=== PATIENT | female | born 1990 | race Hispanic/Latino ===

== ENCOUNTER 2020-11-16 07:59 | Outpatient (RCR) | payer OTHER, SELFPAY ==
[2020-11-16 09:32] LABS: Hematocrit 30.5 % (37.0-47.0); Hemoglobin 10.4 g/dL (12.0-15.0); Mean Corpuscular HGB Conc 34.1 g/dl (32-36); Mean Corpuscular Hemoglobin 31.2 pg (26-34); Mean Corpuscular Volume 91.6 fl (80-100); Mean Platelet Volume 9.2 fl (7.4-10.4); Platelet Count Result 183 k/mm3 (150-375); Red Blood Count 3.33 M/mm3 (4.2-5.4); Red Cell Distribution Width 13.2 % (11.5-14.5); White Blood Count 5.9 K/mm3 (4.5-10.0)
[2020-11-16 14:12] LABS: Glucose 1 Hour PP 50gm Dose 145 mg/dL
[2020-11-16 14:52] LABS: HIV 1/2 Ab P24 Ag Result Negative (Negative)
[2020-11-17] MEDS: RHO(D) IMMUNE GLOBULIN 300 MCG SYRINGE IM (11:59)
== END 2021-02-14 23:59 | disposition home or self-care (01) ==
LOC: ANHLAB 07:59
PROVIDERS: PCP Internal Medicine Gastroenterology; Visit Provider Obstetrics & Gynecology
DX: Z29.13 Encounter for prophylactic Rho(D) immune globulin (principal); Z11.4 Encounter for screening for human immunodeficiency virus [HIV]; O36.0990 Maternal care for other rhesus isoimmunization, unspecified trimester, not applicable or unspecified; Z3A.00 Weeks of gestation of pregnancy not specified
CPT/HCPCS: 36415; 82947; 85027; 85461; 86703; 90384; 96372; G0432; J2790

== ENCOUNTER 2021-01-31 12:07 | Outpatient (CLI) | payer OTHER, SELFPAY ==
[2021-01-31 13:10] LABS: Hematocrit 35.7 % (37.0-47.0); Hemoglobin 12.1 g/dL (12.0-15.0); Mean Corpuscular HGB Conc 33.9 g/dl (32-36); Mean Corpuscular Hemoglobin 30.9 pg (26-34); Mean Corpuscular Volume 91.3 fl (80-100); Mean Platelet Volume 10.1 fl (7.4-10.4); Platelet Count Result 168 k/mm3 (150-375); Red Blood Count 3.91 M/mm3 (4.2-5.4); Red Cell Distribution Width 13.9 % (11.5-14.5); White Blood Count 6.1 K/mm3 (4.5-10.0)
[2021-02-01 14:14] LABS: Rapid Plasma Reagin Non-Reactive (NonReactive)
== END 2021-01-31 12:08 | disposition home or self-care (01) ==
LOC: ANHLAB 12:10
PROVIDERS: PCP Internal Medicine Gastroenterology; Visit Provider Obstetrics & Gynecology
DX: Z34.93 Encounter for supervision of normal pregnancy, unspecified, third trimester (principal); Z3A.00 Weeks of gestation of pregnancy not specified
CPT/HCPCS: 36415; 85027; 86592; 86850; 86900; 86901

== ENCOUNTER 2021-02-01 09:49 | Inpatient (IN) | payer OTHER, SELFPAY ==
--- NOTE | 2021-01-23 14:46 | PC.NURSE ---
VERIFIED WITH OR SCHEDULE AND PATIENT C/S WITH TUBAL ON 02/01/21 AT 1200 PATIENT GIVEN REQUISITION FOR LAB DRAW ON 01/31/21
[2021-02-01] VITALS (48 sets, daily range): BP systolic 87–110; BP diastolic 60–75; PULSE 50–83; RESP 12–16; TEMP 36.3–36.8; O2SAT 99–100; BMI 32.4
[2021-02-01] MEDS: LACTATED RINGERS 1,000 ML 125 ML IV CONT ×2 (10:24→11:32)
--- NOTE | 2021-02-01 10:30 | LDADM ---
This patient, Lynn Ribeiro, was admitted to Labor/Delivery/Recovery 120 on 02/01/21 at 09:49. Plans for labor, pain management and were discussed with patient. Patient/family oriented to hospital policies and general routines including ID bracelet, bed and alarms, visiting hours, pain management, procedures, bathroom and other care routines, personal items, smoking policy, room service/diet and guest tray routines, security routines, and visiting hours. Patient/Family are encouraged to report perceived risks to care and to ask questions if they do not understand what they are told or what they should do. See OBIX for further documentation.
--- NOTE | 2021-02-01 11:53 | PM.IMHP ---
H&P: HPI History of Present Illness Date/Time: 02/01/21 11:53 30-year-old 4 para 3003 female presents for repeat delivery. Last was delivered via section though the 1st 2 were vaginal deliveries. Also this is in breech presentation. Also desires tubal ligation which we have discussed the permanence failure rate increased risk of ectopic and regret and she does desire to proceed. Chief Complaint: Review of Systems Review of Systems: All systems reviewed & are unremarkable except as noted in HPI and below PMFSH Family History Family History Father Hypertension Mother Diabetes mellitus Grandparent Cancer Cerebrovascular accident Social History Social History Smoking status: Never smoker Substance use: never Spiritual care concerns: No Meds Home Medications and Allergies Home Medications Medication Instructions Recorded Confirmed Type prenat.vits,yifan,zhh-shof-jvgtj 1 tablet PO DAILY 01/23/21 01/23/21 History [ #2] Allergies Allergy/AdvReac Type Severity Reaction Status Date / Time aspirin AdvReac Vomiting Verified 02/01/21 10:55 Vital Signs Vital Signs - 24 hr 02/01/21 10:11 02/01/21 10:30 02/01/21 10:45 Temperature Pulse Rate 82 76 75 Blood Pressure 97/66 L 100/64 105/73 02/01/21 11:01 02/01/21 11:10 02/01/21 11:15 Temperature 36.8 C Pulse Rate 83 80 Blood Pressure 106/72 106/75 Exam Const: General: cooperative Resp: Effort & Inspection: normal respiratory effort Auscultation: clear to auscultation bilaterally Cardio: Rate: regular rate Rhythm: regular rhythm GI: Inspection: normal to inspection Auscultation: normal bowel sounds : External Female Exam: normal external appearance Speculum Exam - Vagina: normal appearance of the vagina Bimanual exam- vagina & uterus: enlarged (40cm heart tones 140 breech presentation) Assessment and Plan Assessment and plan (1) 39 weeks gestation of : Code(s): Z3A.39 - 39 weeks gestation of Status: Acute (2) Previous delivery affecting : Code(s): O34.219 - Maternal care for unspecified type scar from previous delivery Status: Acute (3) Breech presentation: Code(s): O32.1XX0 - Maternal care for breech presentation, not applicable or unspecified Status: Acute (4) Encounter for female sterilization procedure: Code(s): Z30.2 - Encounter for sterilization Status: Acute Additional Plan Proceed with low-transverse section with bilateral tubal ligation
--- NOTE | 2021-02-01 11:56 | WPDHPUPDATE1 ---
History and Physical Update Update Date/Time: 02/01/21 11:56 History and Physical has been reviewed, including an updated exam of the patient. There are NO changes in the patient's condition. Risks, benefits, and alternatives have been discussed and questions answered. Patient agrees to proceed with procedure.
--- NOTE | 2021-02-01 12:54 | P.PCNOB_ITS ---
OB - Delivery Note Procedure Procedure: Procedures Operation Date: 02/01/21 12:00 <No data on this case meets the specified criteria> Route of delivery: (With bilateral tubal ligation) Specimen: Yes Quantitative Blood Loss (ml): 1,000 Anesthesia type: Spinal Disposition: floor Narrative: Patient prepped and draped usual manner this procedure Pfannenstiel incision was made. This carried down to the fascia which was extended bilaterally the length of the skin incision. Peritoneum was readily entered and bladder flap was developed. Lower size lower uterine segment was incised the length of the uterus. Breech was then delivered without difficulty footling breech without difficulty. Cord was clamped and cut placenta was removed manually and membranes and clots removed as well. Uterus was then closed using 0 Monocryl in running interlocking manner with good approximation hemostasis noted there was a small amount of oozing from the right edge which was right rendered hemostatic using [id number] suture. Bilateral the Jose clamps were then used to grasp the tube and the distal segments of both tubes were readily removed. Uterus was turned the abdomen uterine incision was hemostatic and both tubal stumps were also hemostatic and intact. All subfascial tissue was noted be hemostatic and the fascia was approximated from the left angle to midline in the right angle to midline in running manner with good approximation noted. Subcutaneous tissue approximated and janae used to approximate skin edges. Patient are procedure was then to recovery room in stable condition. [place] Weeks of gestation at delivery: 39 Infant gender: Male Weight (pounds): 8 Weight (ounces): 15 presentation: lolis breech score one minute: 9 score five minutes: 9
[2021-02-01] MEDS: OXYTOCIN 30 UNITS/NS 500 ML 30 UNITS/500 ML BAG 125 UNITS IV CONT (13:52)
[2021-02-01] MEDS: ONDANSETRON INJ 4 MG/2 ML VIAL IV PUSH (17:27)
[2021-02-01] MEDS: KETOROLAC 30 MG/ML VIAL (*BKC) IV PUSH (17:27)
[2021-02-01] MEDS: DEXTROSE 5%/0.45% SOD CHL 1,000 ML 125 ML IV CONT (18:30)
[2021-02-01] MEDS: HYDROcodone/acetaminophen (*CRX) 5-325 MG TABLET 1 TAB PO (23:14)
[2021-02-02] VITALS: BP 97/67; PULSE 66; RESP 16; TEMP 36.4; O2SAT 99
[2021-02-02] MEDS: IBUPROFEN 600 MG TABLET PO ×4 (03:50→23:23)
[2021-02-02] MEDS: HYDROcodone/acetaminophen (*CRX) 5-325 MG TABLET 1 TAB PO ×5 (03:50→23:23)
[2021-02-02 04:00] VITALS: BP 98/57; PULSE 70; RESP 16; TEMP 36.4; O2SAT 99
[2021-02-02 05:33] LABS: Basophils Percent Auto 0.2 % (0.2-1.2); Eosinophils Percent Auto 0.3 % (0-4.4); Hematocrit 28.7 % (37.0-47.0); Hemoglobin 9.7 g/dL (12.0-15.0); Immature Granulocyte Absolute 0.02 K/mm3 (0.00-0.031); Immature Granulocyte Percent A 0.2 % (0-0.5); Lymphocytes Absolute Auto 1.42 K/mm3 (0.9-3.2); Mean Corpuscular HGB Conc 33.8 g/dl (32-36); Mean Corpuscular Hemoglobin 30.9 pg (26-34); Mean Corpuscular Volume 91.4 fl (80-100); Mean Platelet Volume 10.4 fl (7.4-10.4); Monocytes Absolute Auto 0.7 K/mm3 (0.1-0.6); Monocytes Percent Auto 7.5 % (2.6-8.5); Neutrophils Absolute Auto 6.7 K/mm3 (1.3-6.7); Neutrophils Percent Auto 75.8 % (45.5-73.1); Platelet Count Result 130 k/mm3 (150-375); Red Blood Count 3.14 M/mm3 (4.2-5.4); Red Cell Distribution Width 13.5 % (11.5-14.5); White Blood Count 8.9 K/mm3 (4.5-10.0)
--- NOTE | 2021-02-02 07:31 | WPDANLDPN2 ---
Anes-Prog Note L&D Date/Time: 02/02/21 07:31 Comfortable throughout: section Neuraxial method: spinal Epidural/Spinal procedure site: clean & non-tender Neuro status: Neuro function grossly intact. Cardiovascular status: normal Respiratory status: normal Airway patency: baseline Mental status: baseline Post-Op hydration status: normal Vital Signs: Last Vital Signs Temp 36.4 C 02/02/21 04:00 Pulse 70 02/02/21 04:00 Resp 16 02/02/21 04:00 BP 98/57 L 02/02/21 04:00 Pulse Ox 99 02/02/21 04:00 Pain score (VAS): 2 I/O: Intake & Output 02/01/21 02/01/21 02/02/21 15:59 23:59 07:59 Intake Total 2000 1100 1600 Output Total 783 848 8111 Balance 1850 500 -200 Post-procedural complaints: none Patient feedback: Patient satisfied with anesthetic care.
--- NOTE | 2021-02-02 07:31 | WPDANLDNPN2 ---
Anes-Prog Note L&D-Neuraxial Date/Time: 02/02/21 07:31 Neuraxial medications: intrathecal PF morphine Opiod-related complaints: none Patient feedback: Patient satisfied with post-operative pain management.
[2021-02-02 08:15] VITALS: BP 92/59; PULSE 73; RESP 20; TEMP 36.5; O2SAT 100
[2021-02-02] MEDS: DOCUSATE SODIUM 100 MG CAPSULE PO ×2 (08:29→16:37)
[2021-02-02] MEDS: POLYSACCHARIDE IRON COMPLEX 150 MG CAPSULE PO ×2 (08:29→16:37)
[2021-02-02] MEDS: MULTIVIT/MIN/PREN/FOL AC/IRON TABLET 1 TAB PO (08:29)
--- NOTE | 2021-02-02 09:03 | PM.OBPNVD ---
OB - PN: Subj Subjective Date/time seen: 02/02/21 09:03 Pain well controlled/diet and ambulation without difficulty. OB - PN: Obj Data Labs CBC & Chem 7: 02/02/21 03:57 Labs: Laboratory Results - last 24 hr 02/02/21 02/02/21 03:57 03:57 WBC 8.9 RBC 3.14 L Hgb 9.7 L Hct 28.7 L MCV 91.4 MCH 30.9 MCHC 33.8 RDW 13.5 Plt Count 130 L MPV 10.4 Immature Gran % (Auto) 0.2 Neut % (Auto) 75.8 H Lymph % (Auto) 16.0 L [place] % (Auto) 7.5 Eos % (Auto) 0.3 Baso % (Auto) 0.2 Lymph # (Auto) 1.42 [place] # (Auto) 0.7 H Eos # (Auto) 0.0 Baso # (Auto) 0.0 Abs Immat Gran (auto) 0.02 Absolute Neuts (auto) 6.7 Absolute Nucleated RBC 0.0 Nucleated RBC % 0.0 Blood Type O Negative Antibody Screen TNP Screen Negative Baby's Blood Type O pos Baby's VIJAYA Negative Doses of RhIg Required 1 OB - PN A/P Assessment and Plan (1) Postop check: Code(s): Z09 - Encounter for follow-up examination after completed treatment for conditions other than malignant neoplasm Status: Acute Assessment and Plan: Routine /postop care. Time Spent With Patient Time: Total time spent is greater than 50% in coordination of care (as documented) at patient's floor/unit and/or counseling patient: Exam GI: Inspection: normal to inspection Auscultation: normal bowel sounds Other: incision dressing clean
--- NOTE | 2021-02-02 09:04 | PM.OBDSVD ---
DS: Admitting Diagnosis Admitting Diagnosis Admitting Diagnosis: DS: Discharge Diagnosis Discharge Diagnosis (1) Postop check: Code(s): Z09 - Encounter for follow-up examination after completed treatment for conditions other than malignant neoplasm Status: Acute OB - DS: Summary OB Procedures : None OB Procedures Intrapartum: and Tubal ligation OB Procedures: : None Peripartum Data Procedures: Procedures Operation Date: 02/01/21 12:00 Actual Procedures Side Surgeon p Repeat Section With Bilateral Tubal Ligation Jeancarlos Shay MD Time Spent with Patient Time attestation: Total time spent providing and/or coordinating discharge services: DS: Data Data Completed and Pending Pending studies at discharge: Pending at discharge 02/01/21 12:37 Surgical [PTH] Routine Labs on day of discharge: Labs from last 24 hours 02/02/21 02/02/21 03:57 03:57 WBC 8.9 RBC 3.14 L Hgb 9.7 L Hct 28.7 L MCV 91.4 MCH 30.9 MCHC 33.8 RDW 13.5 Plt Count 130 L MPV 10.4 Immature Gran % (Auto) 0.2 Neut % (Auto) 75.8 H Lymph % (Auto) 16.0 L [place] % (Auto) 7.5 Eos % (Auto) 0.3 Baso % (Auto) 0.2 Lymph # (Auto) 1.42 [place] # (Auto) 0.7 H Eos # (Auto) 0.0 Baso # (Auto) 0.0 Abs Immat Gran (auto) 0.02 Absolute Neuts (auto) 6.7 Absolute Nucleated RBC 0.0 Nucleated RBC % 0.0 Blood Type O Negative Antibody Screen TNP Screen Negative Baby's Blood Type O pos Baby's VIJAYA Negative Doses of RhIg Required 1 Discharge Plan Discharge Discharging Clinician: Jeancarlos Shay Anticipated Discharge Date/Time: 02/03/21 12:00 Patient Disposition: Home, Self-Care Activity: as tolerated Diet: as tolerated Wound Care Instructions: incision open to air Discharge Instructions: office thursday for staple removal Patient Instructions: Antibiotic Form Stand Alone Forms: General Discharge Information Follow-up/Referrals: Jeancarlos Shay MD [Physician] - 3 Weeks Discharge Medications: New hydrocodone-acetaminophen 5-325 mg Tablet 1 tablet PO Q3H PRN (Reason: Moderate Pain (4-6)) Qty: 20 RF: 0 ibuprofen 600 mg Tablet 600 mg PO Q6H PRN (Reason: Cramping) Qty: 30 RF: 1 Continued #2 Tablet 1 tablet PO DAILY RF: 0 Date of admission: 02/01/21 09:49 Primary Care Provider: TannaZully Admitting Provider: Jeancarlos Shay Attending physician on admission: Jeancarlos Shay Condition: Stable
[2021-02-02] MEDS: RHO(D) IMMUNE GLOBULIN 300 MCG/2 ML SYRINGE IM (10:16)
[2021-02-02 12:00] VITALS: BP 101/60; PULSE 67; RESP 18; TEMP 36.6; O2SAT 99
[2021-02-02] MEDS: SIMETHICONE 80 MG TAB.CHEW PO ×4 (12:07→23:24)
[2021-02-02 20:00] VITALS: BP 104/60; PULSE 74; RESP 16; TEMP 36.5; O2SAT 98
[2021-02-03] MEDS: TETANUS,DIPHTHERIA,AC PERTUSSIS ADULT (0.5 ML) BOOSTRIX IM (04:46)
[2021-02-03] MEDS: SIMETHICONE 80 MG TAB.CHEW PO (04:47)
[2021-02-03] MEDS: HYDROcodone/acetaminophen (*CRX) 5-325 MG TABLET 1 TAB PO ×2 (04:47→07:37)
[2021-02-03] MEDS: POLYSACCHARIDE IRON COMPLEX 150 MG CAPSULE PO (07:37)
[2021-02-03] MEDS: MULTIVIT/MIN/PREN/FOL AC/IRON TABLET 1 TAB PO (07:37)
[2021-02-03] MEDS: DOCUSATE SODIUM 100 MG CAPSULE PO (07:37)
[2021-02-03] MEDS: IBUPROFEN 600 MG TABLET PO (07:38)
[2021-02-03 08:00] VITALS: BP 113/76; PULSE 74; RESP 16; TEMP 36.3; O2SAT 100
--- NOTE | 2021-02-03 10:50 | PC.NURSE ---
Patient viewed the discharge video Mother & Baby Care, The First Two Weeks . Patient was given the opportunity and encouraged to ask questions. Patient verbalized understanding of information shared and has been given the mother/baby guide for home reference.
[2021-02-04 12:30] VITALS: BP 105/61; PULSE 82; RESP 16; TEMP 36.7; O2SAT 98
--- NOTE | 2021-02-14 09:48 | PM.OBDSVD ---
DS: Admitting Diagnosis Admitting Diagnosis Admitting Diagnosis: OB - DS: Summary OB Procedures : None OB Procedures Intrapartum: Spontaneous Vag Delivery OB Procedures: : None Peripartum Data Procedures: Procedures Operation Date: 02/01/21 12:00 Actual Procedure Side Surgeon p Repeat Section With Bilateral Tubal Ligation Jeancarlos Shay MD Time Spent with Patient Time attestation: Total time spent providing and/or coordinating discharge services: DS: Data Data Completed and Pending Completed studies during hospitalization: Pending at discharge 02/01/21 12:37 Surgical [PTH] Routine Discharge Plan Discharge Discharging Clinician: Jeancarlos Shay Anticipated Discharge Date/Time: 02/03/21 12:00 Patient Disposition: Home, Self-Care Activity: as tolerated Diet: as tolerated Wound Care Instructions: incision open to air Discharge Instructions: office thursday for staple removal Education: Mom and Baby Guide Given to: Mother Follow-Up: Call your delivering provider's office for an appointment to be seen in: 3 weeks Mom and baby should come to the [facility] for the follow-up appointment. Appointment Date/Time: February 04, 2021 at 12:30 pm What to expect at your follow-up visit: Physical Assessment Call [phone] if you are unable to keep your appointment time. BREAST CARE: * Wear a snug supportive bra. * For engorgement discomfort: Bottle Feeding: * May apply ice packs ABDOMINAL INCISION: (if applicable) * Allow incision to air dry * Do NOT use lotions for powders on your incision * When showering, allow soap and water to run over the incision, but do not wash incision EPISIOTOMY/PERINEAL CARE: * Until bleeding stops, use your aleksandr bottle after urinating * Change your pad frequently throughout the day * No tub baths until seen by your physician - You may shower ACTIVITY: * Rest as much as possible. * Do not exercise or lift anything heavier than your baby (such as laundry or other children.) * Avoid stairs or driving as much as possible. * Do not put anything into the vagina. No douching, tampons, or sexual activity until seen by physician. NOTIFY PHYSICIAN IF YOU HAVE ANY QUESTIONS OR IF ANY OF THE FOLLOWING SYMPTOMS OCCUR: * If your incision becomes red, swollen, or more painful than what you have experienced in the hospital. * If your vaginal bleeding becomes foul smelling. * If your vaginal bleeding becomes more heavy than a period or if your bleeding changes from pink to bright red. However, you may pass an occasional walnut-sized clot once or twice for the first week . * If you experience a sharp, shooting pain in you calves. * If you discover a hard, reddened area on your breast or if you experience flu-like symptoms. DIET: * Eat regular, well-balanced meals. * Drink plenty of fluids daily. If , drink to thirst. Patient Instructions: Antibiotic Form Stand Alone Forms: General Discharge Information Follow-up/Referrals: Jeancarlos Shay MD [Physician] - 3 Weeks Discharge Medications: New hydrocodone-acetaminophen 5-325 mg Tablet 1 tablet PO Q3H PRN (Reason: Moderate Pain (4-6)) Qty: 20 RF: 0 ibuprofen 600 mg Tablet 600 mg PO Q6H PRN (Reason: Cramping) Qty: 30 RF: 1 Continued prenat.vits,yifan,[id number]-rdgps Tablet 1 tablet PO DAILY RF: 0 Date of admission: 02/01/21 09:49 Primary Care Provider: [place] Admitting Provider: Jeancarlos Shay Attending physician on admission: Jeancarlos Shay Condition: Stable
== END 2021-02-03 11:48 | disposition home or self-care (01) | DRG 540 ==
LOC: ANHLDR 09:52 → ANHOB2 15:35
PROVIDERS: Admitting Provider Obstetrics & Gynecology; PCP Internal Medicine Gastroenterology; Visit Provider Obstetrics & Gynecology
PROC: 10D00Z1 Extraction of Products of Conception, Low, Open Approach (ICD-10-PCS; CPT 59514; principal; 2021-02-01 12:00)
DX: O34.211 Maternal care for low transverse scar from previous cesarean delivery (principal); Z37.0 Single live birth; Z3A.39 39 weeks gestation of pregnancy; Z30.2 Encounter for sterilization; O32.8XX0 Maternal care for other malpresentation of fetus, not applicable or unspecified; O99.02 Anemia complicating childbirth; D64.9 Anemia, unspecified
CPT/HCPCS: 36415; 85025; 85461; 88302; 90384; 90715; A9270; J0131; J1885; J2274; J2405; J2590; J2790; J7120

== ENCOUNTER 2021-07-11 10:17 | Outpatient (CLI) | payer OTHER, SELFPAY ==
--- NOTE | ~2021-07-11 | MMUS_ITS ---
EXAMINATION: MM diagnostic manda LT w jose antonio, US breast LT complete HISTORY: Palpable breast lump near the areola TECHNIQUE: Additional 3-D tomosynthesis images of the left breast were performed and synthetic 2-D im ages were generated. CAD analysis was submitted and interpreted. High resolution complete left breast ultrasound was performed. COMPARISON: None BREAST PARENCHYMAL COMPOSITION: The breasts are heterogenously dense, which may obscure small masses. FINDINGS: MAMMOGRAPHIC FINDINGS: There are no suspicious masses, calcifications or architectural distortion in the left breast to sugg est malignancy. ULTRASOUND: Complete left breast ultrasound: At 3:00 near the areola there is a 1.4 cm cyst. Mildly prominent sub areolar ducts. No suspicious solid masses are identified in the left breast. There is normal heteroge neous echotexture in the remainder of the left breast. IMPRESSION: 1. No evidence for malignancy in the left breast. 2. Routine yearly screening mammogram and regular clinical breast examination are recommended. BI-RADS Category 2: Benign finding(s). Reviewed, dictated and finalized at location A. IMPRESSION: 1. No evidence for malignancy in the left breast. 2. Routine yearly screening mammogram and regular clinical breast examination a re recommended. BI-RADS Category 2: Benign finding(s).
== END 2021-07-11 10:18 | disposition home or self-care (01) ==
LOC: ANHIMG 10:19
PROVIDERS: PCP Internal Medicine Gastroenterology; Visit Provider Obstetrics & Gynecology
DX: N63.20 Unspecified lump in the left breast, unspecified quadrant (principal)
CPT/HCPCS: 76641; 77061; 77065; G0279

== ENCOUNTER 2022-06-29 10:34 | Emergency (ER) | payer OTHER, SELFPAY ==
[2022-06-29 10:42] VITALS: BP 114/78; PULSE 82; RESP 16; TEMP 36.2; O2SAT 100
--- NOTE | 2022-06-29 10:49 | ED.EAR ---
HPI - Ear Problem General Chief complaint: Ear Stated complaint: Both Ears Irritation,Coughing Source: patient Mode of arrival: ambulatory Limitations: no limitations History of Present Illness HPI Narrative: Ms. Alfonso is a 31-year-old female patient presenting to the clinic today with complaints of runny nose, nasal congestion, ear discomfort, and productive cough x1 week. Patient reports that she just got over COVID 1 month ago and she has had some congestion ever since however over this last week the congestion has gotten worse. She states that she is having difficulty breathing through her nose and has been also having some headaches. She denies any fever or chills. Related Data Home Medications Medication Instructions Recorded Confirmed prenat.vits,yifan,ahz-jrsu-jomgq 1 tablet PO DAILY 01/23/21 01/23/21 Allergies Allergy/AdvReac Type Severity Reaction Status Date / Time aspirin AdvReac Vomiting Verified 02/01/21 10:55 Review of Systems Review of Systems: Pertinent positives per HPI. Patient denies any fever, chills, rash, headache, visual changes, dizziness, shortness of breath, chest pain, palpitations, nausea, vomiting, diarrhea, constipation, abdominal pain, or any urinary issues. [facility] Family History Family History Father Hypertension Mother Diabetes mellitus Grandparent Cancer Cerebrovascular accident Social History Social History Smoking status: Never smoker Substance use: never Spiritual care concerns: No Comments At the time of my signature, I reviewed and agree with the nursing past medical, surgical, social, and family history. There is no relevant family history pertinent to the patient complaint. Exam Narrative: General: Well-developed, well nourished, in no apparent distress Head: Normocephalic, atraumatic Eyes: Pupils equally round and reactive to light bilaterally, EOM intact, sclera and conjunctive clear, no discharge, lids normal Ears: TMs intact dull, and fluid noted behind the TMs, ear canals ceruminous, no drainage, grossly hearing normal. Nose: Nares patent, clear nasal discharge, moderate inflammation, mild frontal sinus tenderness. Mouth: Oral pharynx without lesions or masses, good dentition, MMM. Postnasal drip Neck: Supple, trachea midline, no enlargement of anterior or posterior cervical nodes, no thyroid masses or goiter palpable. Cardio: Regular rate and rhythm, s1 and s2 normal, no murmur appreciated. Resp: Clear to auscultation bilaterally, no rhonchi, rales, wheezing or rubs Course Course Emergency Course: Portions of this record may have been created with voice recognition software. Level of Care: Express Care Visit Vital Signs Vital signs: Vital Signs Temperature 36.2 C L 06/29/22 10:42 Pulse Rate 82 06/29/22 10:42 Respiratory Rate 16 06/29/22 10:42 Blood Pressure 114/78 06/29/22 10:42 Pulse Oximetry 100 06/29/22 10:42 Oxygen Delivery Room Air 06/29/22 10:42 Temperature 36.2 C L 06/29/22 10:42 Pulse Rate 82 06/29/22 10:42 Respiratory Rate 16 06/29/22 10:42 Blood Pressure 114/78 06/29/22 10:42 Pulse Oximetry 100 06/29/22 10:42 Oxygen Delivery Room Air 06/29/22 10:42 Vital signs reviewed Medical Decision Making MDM Narrative Medical decision making narrative: At the time of visit patient is resting comfortably on the exam table. I suspect the patient has an upper respiratory infection, serous otitis, with postnasal drip and early sinusitis. I will give her a prescription for prednisone to help with congestion and pressure. Supportive measures were discussed with the patient she voiced understanding of discharge instructions and agrees to the treatment plan. Differential Diagnosis Differential Diagnosis: Otitis media, otitis externa, eustachian tube dysfunction, serous otitis
== END 2022-06-29 10:57 | disposition home or self-care (01) ==
PROVIDERS: Emergency Provider Nurse Practitioner Family; PCP Internal Medicine Gastroenterology
DX: J06.9 Acute upper respiratory infection, unspecified (principal); H65.03 Acute serous otitis media, bilateral; R09.82 Postnasal drip; H69.83 Other specified disorders of Eustachian tube, bilateral
CPT/HCPCS: 99213; G0463